=== PATIENT | female | born 1960 | race Asian ===

== ENCOUNTER 2018-08-04 15:07 | Emergency (ER) | payer BC ==
[2018-08-04] MEDS: KETOROLAC 30 MG INJ IM (17:28)
== END 2018-08-04 17:53 | disposition home or self-care (01) ==
LOC: FTE 15:07
DX: M25.562 Pain in left knee (principal); I10 Essential (primary) hypertension; M10.9 Gout, unspecified
CPT/HCPCS: 73562; 99283